=== PATIENT | male | born 1975 | race Caucasian/White ===

== ENCOUNTER 2020-02-20 12:38 | Observation (INO) | payer OTHER, SELFPAY ==
[2020-02-20] VITALS (13 sets, daily range): BP systolic 137–200; BP diastolic 73–100; PULSE 68–90; RESP 12–23; TEMP 36.2–36.5; O2SAT 95–99; BMI 43.1
--- NOTE | ~2020-02-20 | XR_ITS ---
EXAMINATION: XR chest 2V DATE: 02/20/2020 13:17 INDICATION: Midsternal chest pain TECHNIQUE: PA and lateral views of the chest were obtained. COMPARISON: Chest radiograph dated 05/28/2018 FINDINGS: The lungs remain clear with no focal airspace opacities, pulmonary edema, pleural effusion or pneumot horax. The cardiomediastinal silhouette is normal. Mild thoracic spondylosis. IMPRESSION: 1. No acute cardiopulmonary disease. Reviewed, dictated and finalized at location A.
--- NOTE | 2020-02-20 12:55 | ECG_ITS ---
Measurements Intervals [place] Rate: 88 P: 37 IN: 128 QRS: 30 QRSD: 84 T: 24 QT: 353 QTc: 429 Interpretive Statements SINUS RHYTHM BASELINE WANDER- III, AVR, AVL, AVF, V4-V6 NORMAL ECG Electronically Signed On 02-20-2020 13:46:43 CDT by David Oleary D.O.
[2020-02-20 13:08] LABS: Basophils Absolute Auto 0.1 K/mm3 (0.0-0.1); Basophils Percent Auto 0.4 % (0.2-1.2); Eosinophils Absolute Auto 0.3 K/mm3 (0-0.3); Eosinophils Percent Auto 2.2 % (0-4.4); Hematocrit 45.6 % (42.0-52.0); Hemoglobin 16.1 g/dL (14.0-18.0); Immature Granulocyte Absolute 0.04 K/mm3 (0.00-0.031); Immature Granulocyte Percent A 0.3 % (0-0.5); Lymphocytes Absolute Auto 2.68 K/mm3 (0.9-3.2); Lymphocytes Percent Auto 23.3 % (18.3-44.2); Mean Corpuscular HGB Conc 35.3 g/dl (32-36); Mean Corpuscular Hemoglobin 32.3 pg (26-34); Mean Corpuscular Volume 91.6 fl (80-100); Mean Platelet Volume 9.9 fl (7.4-10.4); Monocytes Absolute Auto 1.2 K/mm3 (0.1-0.6); Monocytes Percent Auto 10.5 % (2.6-8.5); Neutrophils Absolute Auto 7.3 K/mm3 (1.3-6.7); Neutrophils Percent Auto 63.3 % (45.5-73.1); Platelet Count Result 289 k/mm3 (150-375); Red Blood Count 4.98 M/mm3 (4.6-6.20); Red Cell Distribution Width 12.6 % (11.5-14.5); White Blood Count 11.5 K/mm3 (4.5-10.0)
[2020-02-20] MEDS: ASPIRIN 81 MG CHEWABLE TABLET 324 MG PO (13:12)
--- NOTE | 2020-02-20 13:13 | ED.CHESTPAIN ---
HPI - Chest Pain General Chief Complaint: Chest Pain <Sade Payan PA-C - Last Filed: 02/20/20 19:02> Stated Complaint: chest pain/nausea <CORNELIO Lopez Last Filed: 02/20/20 19:02> Time Seen by Provider: 02/20/20 13:04 <CORNELIO Lopez Last Filed: 02/20/20 19:02> Source: patient <CORNELIO Lopez Last Filed: 02/20/20 19:02> Mode of arrival: ambulatory <CORNELIO Lopez Last Filed: 02/20/20 19:02> Limitations: no limitations <CORNELIO Lopez Last Filed: 02/20/20 19:02> History of Present Illness HPI narrative: This is a 44 year old male that presents to the ER for chest tightness which started this morning. Reports he was getting some things ready for a libertarian for his mother's birthday. Reports he was sitting in a chair and noted some nausea. Reports he also felt lightheaded. He then stood up and started to walk around with worsening of symptoms and started to note some chest tightness. Associated with shortness of breath. Reports he still does have some chest tightness. Has history of CAD with stent placement 4 years ago. Denies fever, diaphoresis, arm pain, vomiting, abdominal pain, or weakness. <Sade Payan PA-C - Last Filed: 02/20/20 19:02> Related Data Home Medications: Home Medications Medication Instructions Recorded Confirmed atorvastatin 40 mg tablet 40 mg PO QPM 08/31/19 02/20/20 famotidine 20 mg tablet 20 mg PO QPM tablet 08/31/19 02/20/20 furosemide 20 mg tablet 20 mg PO QPM 08/31/19 02/20/20 lisinopril 40 mg tablet 40 mg PO QPM 08/31/19 02/20/20 nitroglycerin 0.4 mg sublingual 0.4 mg SUBLINGUAL Q5M PRN 08/31/19 02/20/20 tablet amlodipine 10 mg PO QPM 02/20/20 02/20/20 carvedilol 12.5 mg PO BID 02/20/20 02/20/20 zolpidem 10 mg PO HS 02/20/20 02/20/20 <Sade Payan PA-C - Last Filed: 02/20/20 19:02> Allergies/Adverse Reactions: Allergies Allergy/AdvReac Type Severity Reaction Status Date / Time morphine AdvReac Unknown Dyspnea / Verified 02/20/20 15:36 SOB <Sade Payan PA-C - Last Filed: 02/20/20 19:02> Review of Systems Review of Systems: Narrative: CONSTITUTIONAL: Denies fever CARDIOVASCULAR: Reports chest pain. Denies edema. RESPIRATORY: Reports dyspnea. GASTROINTESTINAL: Reports nausea. Denies abdominal pain, vomiting NEUROLOGIC: Denies numbness, or weakness. <Sade Payan PA-C - Last Filed: 02/20/20 19:02> All systems reviewed & are unremarkable except as noted in HPI and below <Sade Payan PA-C - Last Filed: 02/20/20 19:02> [facility] Past Medical History Medical History: Medical History (Updated 02/20/20 @ 19:02 by Sade Payan PA-C) Coronary artery disease (~06/2016) : NSTEMI on June 29, 2016 status post drug-eluting stent to proximal LAD per Dr. Alfaro. : He is followed by Dr Red Marcos affiliated with [facility] in [place]. Dyslipidemia Essential hypertension Morbid obesity Obstructive sleep apnea on CPAP Type 2 diabetes mellitus <Sade Payan PA-C - Last Filed: 02/20/20 19:02> Surgical History Surgical History: Surgical History (Updated 02/20/20 @ 15:37 by Linsey Sumner PA-C) History of coronary artery stent placement Drug-eluting stent to the LAD on 06/21/2016. <Sade Payan PA-C - Last Filed: 02/20/20 19:02> Family History Family History: Family History (Updated 02/20/20 @ 16:59 by Linsey Sumner PA-C) Grandparent Hypertension Cerebrovascular accident Family history of coronary artery disease Mother Hypertension Father Family history of coronary artery disease Acute myocardial infarction Patient's father at the age of 49 from an MA. Other Family history of cardiovascular disease <Sade Payan PA-C - Last Filed: 02/20/20 19:02> Social History Social History: Social History (Updated 02/20/20 @ 17:00 by Linsey Sumner PA-C) Social History: The elsi
[2020-02-20 13:16] LABS: INR 0.9; Prothrombin Time 12.3 Seconds (11.1-14.7)
[2020-02-20 13:17] LABS: Partial Thromboplastin Time 25.3 SECONDS (22.3-36.8)
[2020-02-20 13:20] LABS: Blood Urea Nitrogen 12 mg/dL (9-20); Calcium 8.9 mg/dL (8.4-10.2); Carbon Dioxide 28 mmol/L (22-30); Chloride 100 mmol/L (98-107); Estimated CRCL calculation 126 ml/min; Estimated Glomerular Filt Rate > 60; Glucose 132 mg/dL (75-110); Potassium 3.8 mmol/L (3.4-5.0); Sodium 135 mmol/L (137-145)
[2020-02-20] MEDS: NITROGLYCERIN SL 0.4 MG TABLET SUBLINGUAL (13:24)
--- NOTE | 2020-02-20 13:29 | PC.NURSE ---
pt not wanting to take nitro, states that he believes that it makes the pressure in his chest worse pt received nitro x1
[2020-02-20 13:33] LABS: Troponin I < 0.012 ng/mL (0.000-0.034)
[2020-02-20 13:36] LABS: Alanine Aminotransferase 24 U/L (4-50); Albumin Level 4.5 g/dL (3.5-5.1); Alkaline Phosphatase 126 U/L (38-126); Aspartate Amino Transferase 21 U/L (17-59); Lipase 59 U/L (23-300)
[2020-02-20 13:45] LABS: NT Pro B Type Natriuretic Pept 68 PG/ML (5-100)
[2020-02-20] MEDS: ONDANSETRON INJ 4 MG/2 ML VIAL IV PUSH (14:31)
--- NOTE | 2020-02-20 15:31 | ADMGEN ---
This patient, Heri Post, was admitted to IMU Room 202-. Patient/family oriented to hospital policies and general routines including ID bracelet, bed and alarms, visiting hours, pain management, procedures, bathroom and other care routines, personal items, smoking policy, room service/diet, and visiting hours. Valuables list has been completed. Information on how to activate the Rapid Response Team has been discussed. Patient/Family are encouraged to report perceived risks to care and to ask questions if they do not understand what they are told or what they should do.
[2020-02-20 16:22] LABS: Glucose Point of Care 126 (65-105)
--- NOTE | 2020-02-20 16:30 | PM.IMHP ---
H&P: HPI History of Present Illness Chief complaint: Chest pain Narrative: Heri Post is a very pleasant 44-year-old male with early onset coronary artery disease, hypertension, dyslipidemia, diabetes, and obstructive sleep apnea who presented to the emergency department earlier today for evaluation of chest pain. He had his 1st cardiac event at the age of 41 in which he was found to have a high-grade ulcerated proximal LAD lesion. A drug-eluting stent was placed at that time, and he has really had an unremarkable course since then. He had previously been on both aspirin and Brilinta however did not tolerate Brilinta well and is now just taking a baby aspirin daily. He does have nitroglycerin at home and believes that he has only used it twice since 2016. He is a patient of Dr. Red Marcos at [facility] in [place] and the patient was last seen by him in August 2019. At that time he had an echocardiogram which he believes was unremarkable. In any regard, he works over nights for the [employer] (4p - 4a) with his last shift ending early Friday morning. It is his mother's birthday today, and he went to his campsite at approximately 0100 in order to began smoking pork butts for the celebration. Simply while sitting in a chair at about 0430, he began ?feeling weird? with feelings of lightheadedness, dizziness, and anxiety. He then began to experience midsternal chest tightness along with shortness of breath, and he noted at that time that his pulse was in the low 40s, which is unusual for him. Initially he thought perhaps his symptoms were due to the fact that he had not slept for 36 hours or perhaps because he had eaten, so he and his son went to [employer] to get a breakfast sandwich. As he is a diabetic, asked him he checked his glucose at that time however he reports that he never monitors at home. He was given nitroglycerin the emergency department, and tells me that it seemed to make the tightness worse and he refused further dosing. He continues to have mild tightness without any other symptoms at this time. The symptoms are not exactly similar to when he had his NSTEMI. He does occasionally have indigestion, but states that these feelings are completely different. Furthermore, he denies any injury and has no reproducible tenderness on palpation. Review of Systems Review of Systems: Narrative: Twelve systems were reviewed with pertinent positives and negatives as per HPI. No fever, chills, or sweats. He denies recent cold or flu symptoms. No cough. He denies sick contacts. He denies vomiting. No diarrhea or constipation. He denies pleuritic pain and lower extremity edema. He states compliance with his CPAP. He admits that he does not check his glucose at home, but believes his diabetes is well controlled on metformin. He denies blurry vision, polydipsia, and polyuria. No neuropathy symptoms. Except as documented, all other systems were reviewed and are negative. [facility] Past Medical History Medical History (Updated 02/20/20 @ 16:58 by Linsey Sumner PA-C) Coronary artery disease (~06/2016) : NSTEMI on June 29, 2016 status post drug-eluting stent to proximal LAD per Dr. Alfaro. : He is followed by Dr Red Marcos affiliated with [facility] in [place]. Dyslipidemia Essential hypertension Morbid obesity Obstructive sleep apnea on CPAP Type 2 diabetes mellitus Surgical History Surgical History (Updated 02/20/20 @ 15:37 by Linsey Sumner PA-C) History of coronary artery stent placement Drug-eluting stent to the LAD on 06/21/2016. Family History Family History (Updated 02/20/20 @ 16:59 by Linsey Sumner PA-C) Grandparent Hypertension Cerebrovascular accident Family history of coronary artery disease Mother Hypertension Father Family history of coronary artery disease Acute myocardial infarction Patient's father at the age of 49 from an [place].
[2020-02-20 16:50] LABS: Troponin I < 0.012 ng/mL (0.000-0.034)
[2020-02-20 17:24] LABS: Hemoglobin A1C 7.1 % (<5.7)
[2020-02-20] MEDS: FUROSEMIDE 20 MG TABLET PO (17:45)
[2020-02-20] MEDS: ATORVASTATIN 40 MG TABLET PO (17:45)
[2020-02-20] MEDS: FAMOTIDINE 20 MG TABLET PO (17:45)
[2020-02-20] MEDS: AMLODIPINE BESYLATE 5 MG TABLET 10 MG PO (17:45)
[2020-02-20] MEDS: lisinopriL 20 MG TABLET 40 MG PO (17:45)
[2020-02-20 19:32] LABS: Troponin I < 0.012 ng/mL (0.000-0.034)
[2020-02-20 20:48] LABS: Glucose Point of Care 219 (65-105)
[2020-02-20] MEDS: carvediloL 12.5 MG TABLET PO (20:56)
[2020-02-20] MEDS: ZOLPIDEM TARTRATE 5 MG TABLET 10 MG PO (23:50)
[2020-02-21] VITALS (20 sets, daily range): BP systolic 112–148; BP diastolic 63–83; PULSE 52–79; RESP 14–20; TEMP 35.6–36.8; O2SAT 94–100
[2020-02-21 05:08] LABS: Basophils Absolute Auto 0.1 K/mm3 (0.0-0.1); Basophils Percent Auto 0.5 % (0.2-1.2); Eosinophils Absolute Auto 0.3 K/mm3 (0-0.3); Eosinophils Percent Auto 2.8 % (0-4.4); Hematocrit 42.2 % (42.0-52.0); Hemoglobin 14.4 g/dL (14.0-18.0); Immature Granulocyte Absolute 0.04 K/mm3 (0.00-0.031); Immature Granulocyte Percent A 0.4 % (0-0.5); Lymphocytes Absolute Auto 2.85 K/mm3 (0.9-3.2); Lymphocytes Percent Auto 28.8 % (18.3-44.2); Mean Corpuscular HGB Conc 34.1 g/dl (32-36); Mean Corpuscular Hemoglobin 31.2 pg (26-34); Mean Corpuscular Volume 91.3 fl (80-100); Mean Platelet Volume 9.7 fl (7.4-10.4); Monocytes Percent Auto 10.5 % (2.6-8.5); Neutrophils Absolute Auto 5.6 K/mm3 (1.3-6.7); Platelet Count Result 244 k/mm3 (150-375); Red Blood Count 4.62 M/mm3 (4.6-6.20); Red Cell Distribution Width 12.6 % (11.5-14.5); White Blood Count 9.9 K/mm3 (4.5-10.0)
[2020-02-21 05:15] LABS: Blood Urea Nitrogen 11 mg/dL (9-20); Calcium 8.6 mg/dL (8.4-10.2); Carbon Dioxide 29 mmol/L (22-30); Chloride 104 mmol/L (98-107); Estimated CRCL calculation 113 ml/min; Estimated Glomerular Filt Rate > 60; Glucose 152 mg/dL (75-110); Potassium 3.6 mmol/L (3.4-5.0); Sodium 136 mmol/L (137-145)
[2020-02-21] MEDS: ASPIRIN 81 MG ENTERIC TABLET PO (08:20)
[2020-02-21] MEDS: carvediloL 12.5 MG TABLET PO (08:20)
[2020-02-21 08:37] LABS: Glucose Point of Care 117 (65-105)
--- NOTE | 2020-02-21 09:05 | PM.CNCAR ---
Assessment and Plan Assessment and plan (1) Chest pain: Code(s): R07.9 - Chest pain, unspecified Status: Acute Assessment and Plan: 54 y/o old male with history of HHT, DM, CAD s/p PCI of LAD in 2016 who presents with chest pressure and nausea. Symptoms could be due to vasovagal reaction in the setting of sleep deprivation (bradycardia at time of symptoms suggests that) however with his cardiac history and extensive risk factors including HTN, DM, obeisty and strong family history will proceed with [facility]/Coronary angiogram. Will need to hold Metformin for 48 hours post cath I explained procedure in details to the patient. He is willing to proceed understanding risk and benefits. Continue ASA and Statin. He is no longer on second antiplatelet agents after completed a year post last PCI (2) Dyslipidemia: Code(s): E78.5 - Hyperlipidemia, unspecified Status: Acute Assessment and Plan: Continue atorvastatin (3) Essential hypertension: Code(s): I10 - Essential (primary) hypertension Status: Acute Assessment and Plan: Continue Lisinopril and Coreg (4) Type 2 diabetes mellitus: Code(s): E11.9 - Type 2 diabetes mellitus without complications Status: Acute Assessment and Plan: Hold Metformin post cath X48 hours (5) Obstructive sleep apnea on CPAP: Code(s): G47.33 - Obstructive sleep apnea (adult) (pediatric); Z99.89 - Dependence on other enabling machines and devices Status: Acute History of Present Illness History of Present Illness Consult date/time: 02/21/20 09:05 44 y/o male with strong family and personal history of early onset CAD (s/p LAD PCI in 2016), HTN, DM, obesity and JETHRO who presented with chest pressure and nausea. Patient reports doing fairly well since his last cardiac event when underwent stent placement 3-4 years ago with only occasional chest pressure. He rarely needs to take SL nitro. 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 That was associated with chest pressure. His pulse was as low as 40 which is not usual for him. He tried to sleep but could not as he did not have his sleeping bill neither had his CPAP machine. He eventually decided to seek medical attention. He has ruled out for SD so far by EKG and 2 negative troponin. He feels back to normal now. Denies dyspnea. No dizziness, lightheadedness or syncope. EKG shows normal sinus rhythm, early repolarization in lateral leads. Never smoker. He is on Metformin but states that for pre diabetes. Father and grandfather had SD in their 40s. Reason For Visit: Chest pain Review of Systems Review of Systems: All systems reviewed & are unremarkable except as noted in HPI and below Constitutional: Constitutional: Denies fatigue and Denies headache(s) Eyes: Eyes: Denies blurry vision ENT: Reports Normal hearing present and Denies headache(s) Cardiovascular: Cardiovascular: Denies chest pain, Denies diaphoresis, Denies pedal edema, Denies leg edema, Denies lightheadedness, Denies palpitations and Denies dyspnea Respiratory: Respiratory: Denies cough and Denies dyspnea Gastrointestinal: Gastrointestinal: Denies abdominal pain Musculoskeletal: Musculoskeletal: Denies back pain Neurologic: Reports Normal hearing present and Denies headache(s) Psychiatric: Psychiatric: Denies anxiety Endocrine: Endocrine: Denies fatigue and Denies palpitations [facility] Past Medical History Medical History (Updated 02/20/20 @ 19:02 by Sade Payan PA-C) Coronary artery disease (~06/2016) : NSTEMI on June 29, 2016 status post drug-eluting stent to proximal LAD per Dr. Alfaro. : He is followed by Dr Red Marcos affiliated with [facility] in [place]. 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
--- NOTE | 2020-02-21 11:15 | PM.IMPN ---
Progress Note: A&P Assessment and Plan (1) Chest pain: Code(s): R07.9 - Chest pain, unspecified Status: Acute Assessment and Plan: CP appears to be more intermittent occurring when he does not sleep much but the nausea is new. He did have bradycardia as well as HTN which could have been a contributing factor. Troponin negative x 3. EKG showing no acute changes. We continued aspirin, statin beta-chong. Heart rate has remained well controlled. Cardiology consult. Heart catheterization which showed mild coronary artery disease and normal LV systolic function. Plan for continued aggressive medical management and risk factor modification. (2) Coronary artery disease: Onset Date: ~06/2016 Code(s): I25.10 - Atherosclerotic heart disease of [place] coronary artery without angina pectoris Status: Acute Assessment and Plan: Patient with known Coronary disease status post drug-eluting stent to the proximal LAD in June 2016. Continue aspirin, statin, and beta-chong. (3) Essential hypertension: Code(s): I10 - Essential (primary) hypertension Status: Acute Assessment and Plan: Blood pressure was 200/100 on arrival to the emergency department, but did improve after receiving nitroglycerin x1. We continued with his antihypertensives and blood pressure remained well controlled. Blood pressure may have been elevated because of his lack of sleep and being off his CPAP. (4) Dyslipidemia: Code(s): E78.5 - Hyperlipidemia, unspecified Status: Acute Assessment and Plan: LFTs within normal limits. Continue atorvastatin. (5) Type 2 diabetes mellitus: Code(s): E11.9 - Type 2 diabetes mellitus without complications Status: Acute Assessment and Plan: A1c 7.1. Glucose reviewed on 02/21/2020. Glucose well controlled. Metformin on hold. Continue Accu-Cheks covered with sliding scale protocol. Hypoglycemia protocol available as needed. (6) Obstructive sleep apnea on CPAP: Code(s): G47.33 - Obstructive sleep apnea (adult) (pediatric); Z99.89 - Dependence on other enabling machines and devices Status: Acute Assessment and Plan: Patient continues on Hospital CPAP. Continue to monitor. Subjective Date/time seen: 02/21/20 11:15 Interval history: 44yo male with history CAD, diabetes and hypertension presents to the emergency room complaints of chest pain and bradycardia. History reviewed with patient. He states he normally has chest pressure if he has not slept which was the case prior to admission. The difference however is that he developed nausea with the symptoms which is unusual. He was having diarrhea but this is also not uncommon for the patient. He was using a treadmill up to about 2 months ago. He denies any chest pain with that type of exertion. He feels well this morning. Slept well. Currently NPO. Exam Narrative: Exam Narrative: Gen - NARD sitting up in bed Chest - CTA bilaterally, nml RR CV - RRR S1/S2; telemetry showing no significant dysrhythmias. Heart rate dropped to 49 at one point Abd - Soft, NT/ND, Positive BS Ext - No pedal edema Neuro - Alert and oriented. Nonfocal exam. Psych - Nml mood and affect Skin - Warm and dry Objective Data Vital Signs Vital Signs: Vital Signs - 24 hr 02/20/20 12:42 02/20/20 12:55 02/20/20 13:26 Temperature 97.5 F L Pulse Rate 83 86 90 Respiratory Rate 23 H 18 Blood Pressure 200/100 H 170/88 H Pulse Oximetry 99 97 02/20/20 14:32 02/20/20 15:26 02/20/20 15:55 Temperature 97.2 F L Pulse Rate 72 68 70 Respiratory Rate 17 12 16 Blood Pressure 137/73 148/74 H Pulse Oximetry 95 95 97 02/20/20 16:00 02/20/20 16:01 02/20/20 18:05 Temperature 97.2 F L Pulse Rate 70 70 72 Respiratory Rate 16 Blood Pressure 148/74 H Pulse Oximetry 97 02/20/20 20:00 02/20/20 20:51 02/20/20 20:56 Temperature 97.7 F Puls
[2020-02-21 12:19] LABS: Glucose Point of Care 140 (65-105)
--- NOTE | 2020-02-21 14:40 | WPDMODSED ---
Moderate Sedation Note-Pt Data Patient Data Allergies Allergy/AdvReac Type Severity Reaction Status Date / Time morphine AdvReac Unknown Dyspnea / Verified 02/20/20 15:36 SOB Home Medications Medication Instructions Recorded Confirmed Type atorvastatin 40 mg tablet 40 mg PO QPM 08/31/19 02/20/20 History famotidine 20 mg tablet 20 mg PO QPM tablet 08/31/19 02/20/20 History furosemide 20 mg tablet 20 mg PO QPM 08/31/19 02/20/20 History lisinopril 40 mg tablet 40 mg PO QPM 08/31/19 02/20/20 History nitroglycerin 0.4 mg sublingual 0.4 mg SUBLINGUAL Q5M PRN 08/31/19 02/20/20 History tablet metformin 500 mg tablet,extended 500 mg PO BID #60 tablet 12/30/19 02/20/20 Rx release 24 hr amlodipine 10 mg PO QPM 02/20/20 02/20/20 History carvedilol 12.5 mg PO BID 02/20/20 02/20/20 History zolpidem 10 mg PO HS 02/20/20 02/20/20 History Current Medications: Active Medications Amlodipine Besylate (Norvasc) 10 mg PO QPM [facility] Last Admin: 02/20/20 17:45 Dose: 10 mg Documented by: Aspirin (Aspirin Ec) 81 mg PO QAM [facility] Last Admin: 02/21/20 08:20 Dose: 81 mg Documented by: Atorvastatin Calcium (Lipitor) 40 mg PO QPM [facility] Last Admin: 02/20/20 17:45 Dose: 40 mg Documented by: Carvedilol (Coreg) 12.5 mg PO Q12HR [facility] Last Admin: 02/21/20 08:20 Dose: 12.5 mg Documented by: Dextrose (Dextrose 50% Syringe) 12.5 gm IV PUSH PRN PRN; Protocol PRN Reason: Hypoglycemia Famotidine (Pepcid) 20 mg PO QPM [facility] Last Admin: 02/20/20 17:45 Dose: 20 mg Documented by: Furosemide (Lasix Tablet) 20 mg PO QPM [facility] Last Admin: 02/20/20 17:45 Dose: 20 mg Documented by: Glucagon (Glucagon For Inj) 1 mg IM PRN PRN; Protocol PRN Reason: Hypoglycemia Glucose (Glutose 15) 15 gm PO PRN PRN; Protocol PRN Reason: Hypoglycemia Dextrose (Dextrose 5% 1,000 Ml) 1,000 mls @ 100 mls/hr IVPB PRN PRN; Protocol PRN Reason: Hypoglycemia Insulin Aspart (Novolog) 2 - 5 units SUB-Q TIDWM [facility]; Protocol Last Admin: 02/21/20 12:10 Dose: Not Given Documented by: Lisinopril (Prinivil) 40 mg PO QPM [facility] Last Admin: 02/20/20 17:45 Dose: 40 mg Documented by: Zolpidem Tartrate (Ambien) 10 mg PO HS [facility] Last Admin: 02/20/20 23:50 Dose: 10 mg Documented by: Sedation/Anesthesia: No previous sedation/anesthesia problems (including family history). [facility] Past Medical History Medical History (Updated 02/20/20 @ 19:02 by Sade Payan PA-C) Coronary artery disease (~06/2016) : NSTEMI on June 29, 2016 status post drug-eluting stent to proximal LAD per Dr. Alfaro. : He is followed by Dr Red Marcos affiliated with [facility] in [place]. Dyslipidemia Essential hypertension Morbid obesity Obstructive sleep apnea on CPAP Type 2 diabetes mellitus Surgical History Surgical History (Updated 02/20/20 @ 15:37 by Linsey Sumner PA-C) History of coronary artery stent placement Drug-eluting stent to the LAD on 06/21/2016. Family History Family History (Updated 02/20/20 @ 16:59 by Linsey Sumner PA-C) Grandparent Hypertension Cerebrovascular accident Family history of coronary artery disease Mother Hypertension Father Family history of coronary artery disease Acute myocardial infarction Patient's father at the age of 49 from an PR. Other Family history of cardiovascular disease Social History Social History (Updated 02/20/20 @ 17:00 by Linsey Sumner PA-C) Social History: The patient lives in [place], [place] with his wm and 3 sons. 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 He is a lifelong nonsmoker. He drinks about a 30 pack of beer a week. He denies drug use. He designates his fiancee, Rodrick Robison, as his surrogate decision maker and he wishes to be a full code. Spiritual care concerns: No Mod Sed Physical Exam Physical Exam Pre Procedural Exam: Normal: Appearance, Eyes, Ears, Nose, Neck, Throat, Airway, Lungs, Hea
--- NOTE | 2020-02-21 15:11 | P.PCNCC_ITS ---
Cardiac Cath Procedure Note Date of procedure:: 02/21/20 Performing physician:: Edilson Amador MD Procedure: 1. Left heart catheterization, selective coronary angiogram. 2. Left ventricular angiogram. 3. Conscious sedation. 4. Femoral artery angiogram, on the right side. 5. Angio-Seal device for arterial hemostasis [employer] Sales Representative: Dr. Edilson Amador Complications: None. Sedation: Conscious sedation, local anesthesia, using 1 mg of Versed said, 25 mcg of fentanyl, and using 1% lidocaine for local anesthesia. Technique: After informed consent was obtained from patient, was brought to the laboratory phlebotomist, put in the laboratory phlebotomist table, prepped and draped in usual sterile fashion. Five Chilean sheath was inserted into the right common femoral artery, through the sheath 5 [place]an JL4 catheter inserted, advanced to the left coronary artery, left coronary artery angiogram was obtained. The catheter was exchanged over guidewire into a 5 [place]an JR4 catheter, advanced to the right coronary artery, right coronary artery angiogram was obtained. The catheter then was exchanged over guidewire into this 5 [place]an pigtail catheter, advanced to left ventricle, left ventricular angiogram was obtained. The catheter then was pulled, the sheath was pulled applying Angio-Seal device for arterial hemostasis. Patient tolerated the procedure no complication, taken from the laboratory phlebotomist to his room in stable condition stable vital signs. Hemodynamics: aortic pressure 124/60 . LV pressure 124/04 with LVEDP of 24 mmHg Angiographic findings: Left main: Medium size artery no significant disease or stenosis. Lad medium size artery showed patent stent in the proximal portion Left circumflex artery, medium size artery, no significant disease or stenosis. RCA: Dominant vessel, showed mid RCA significant irregularity with a 40-50% disease. LV: Normal size left ventricle with normal left ventricular systolic function. Summary: Mild coronary artery disease, normal left ventricular systolic function. Recommendation: Maximum medical treatment. Risk factor modification.
[2020-02-21 16:51] LABS: Glucose Point of Care 123 (65-105)
--- NOTE | 2020-02-21 16:52 | PM.DS ---
DS: Diagnosis Admitting Diagnosis Admitting Diagnosis: Chest pain, unspecified Discharge Diagnosis (1) Chest pain: Code(s): R07.9 - Chest pain, unspecified Status: Acute Assessment and Plan: CP appears to be more intermittent occurring when he does not sleep much but the nausea is new. He did have bradycardia as well as HTN which could have been a contributing factor. Troponin negative x 3. EKG showing no acute changes. We continued aspirin, statin beta-chong. Heart rate has remained well controlled. Cardiology consult. Patient underwent left heart catheterization which showed mild coronary artery disease and normal LV systolic function. Plan for continued aggressive medical management and risk factor modification. (2) Coronary artery disease: Onset Date: ~06/2016 Code(s): I25.10 - Atherosclerotic heart disease of barrow coronary artery without angina pectoris Status: Acute Assessment and Plan: Patient with known Coronary disease status post drug-eluting stent to the proximal LAD in June 2016. We continued aspirin, statin, and beta-chong. (3) Essential hypertension: Code(s): I10 - Essential (primary) hypertension Status: Acute Assessment and Plan: Blood pressure was 200/100 on arrival to the emergency department, but did improve after receiving nitroglycerin x1. We continued with his antihypertensives and blood pressure remained well controlled. Blood pressure may have been elevated because of his lack of sleep and being off his CPAP. (4) Dyslipidemia: Code(s): E78.5 - Hyperlipidemia, unspecified Status: Acute Assessment and Plan: LFTs within normal limits. We continued atorvastatin. (5) Type 2 diabetes mellitus: Code(s): E11.9 - Type 2 diabetes mellitus without complications Status: Acute Assessment and Plan: A1c 7.1. Glucose reviewed on 02/21/2020. Glucose well controlled. Metformin on hold. Continue Accu-Cheks covered with sliding scale protocol. Hypoglycemia protocol available as needed. (6) Obstructive sleep apnea on CPAP: Code(s): G47.33 - Obstructive sleep apnea (adult) (pediatric); Z99.89 - Dependence on other enabling machines and devices Status: Acute Assessment and Plan: Patient continues on Hospital CPAP. DS: Summary Hospital Course Reason for hospitalization: 44yo male with known CAD here for CP. Please see H&P for details Hospital Course: As above Time Spent with Patient Time attestation: Total time spent providing and/or coordinating discharge services: 32 minutes Time spent: Greater than 30 minutes Specific discharge activities: Patient Education about healthy lifestyle choices. Exam Narrative: Exam Narrative: Gen - NARD sitting up in bed Chest - CTA bilaterally, nml RR CV - RRR S1/S2; telemetry showing no significant dysrhythmias. Heart rate dropped to 49 at one point Abd - Soft, NT/ND, Positive BS Ext - No pedal edema Neuro - Alert and oriented. Nonfocal exam. Psych - Nml mood and affect Skin - Warm and dry DS: Data Data Completed and Pending Labs on day of discharge: Labs from last 24 hours 02/21/20 02/21/20 02/21/20 16:44 11:52 07:51 WBC RBC Hgb Hct MCV MCH MCHC RDW Plt Count MPV Immature Gran % (Auto) Neut % (Auto) Lymph % (Auto) Gillespie % (Auto) Eos % (Auto) Baso % (Auto) Lymph # (Auto) Gillespie # (Auto) Eos # (Auto) Baso # (Auto) Abs Immat Gran (auto) Absolute Neuts (auto) Absolute Nucleated RBC Nucleated RBC % Sodium Potassium Chloride Carbon Dioxide BUN Creatinine Estim Creat Clear Calc Estimated GFR Glucose POC Capillary Glucose 123 H 140 H 117 H Hemoglobin A1c Calcium Troponin I 02/21/20 02/21/20 02/20/20 04:29 04:29 19:45 WBC 9.9 RBC 4.62 Hgb 14.4 Hct 42.2 MCV
[2020-02-21] MEDS: lisinopriL 20 MG TABLET 40 MG PO (17:17)
[2020-02-21] MEDS: AMLODIPINE BESYLATE 5 MG TABLET 10 MG PO (17:17)
[2020-02-21] MEDS: FUROSEMIDE 20 MG TABLET PO (17:17)
[2020-02-21] MEDS: FAMOTIDINE 20 MG TABLET PO (17:17)
[2020-02-21] MEDS: ATORVASTATIN 40 MG TABLET PO (17:17)
[2020-02-21 17:53] LABS: Cholesterol 128 mg/dL (0-200); HDL Direct 24 mg/dL; Triglycerides 148 mg/dL (<150)
[2020-02-21 18:08] LABS: LDL Cholesterol Direct 78 mg/dL
== END 2020-02-21 19:09 | disposition home or self-care (01) ==
LOC: ANHED 14:58 → ANHIMU 15:13
PROVIDERS: Physician Assistant; Specialist; Admitting Provider Family Medicine; Emergency Provider Emergency Medicine; PCP Family Medicine; Visit Provider Internal Medicine
PROC: 4A023N7 Measurement of Cardiac Sampling and Pressure, Left Heart, Percutaneous Approach (ICD-10-PCS; CPT 93452; principal; 2020-02-21 14:30)
DX: R07.9 Chest pain, unspecified (principal); I25.10 Atherosclerotic heart disease of native coronary artery without angina pectoris; I10 Essential (primary) hypertension; E78.5 Hyperlipidemia, unspecified; E11.9 Type 2 diabetes mellitus without complications; G47.33 Obstructive sleep apnea (adult) (pediatric); R06.02 Shortness of breath; I25.2 Old myocardial infarction; Z95.5 Presence of coronary angioplasty implant and graft
CPT/HCPCS: 36415; 71046; 80048; 80061; 80076; 83036; 83690; 83880; 84484; 85025; 85610; 85730; 93005; 93458; 96374; 99285; A9270; C1760; C1887; C1894; G0269; G0378; J1644; J2250; J2405; J3010; J7040

== ENCOUNTER 2021-11-15 21:46 | Emergency (ER) | payer OTHER, SELFPAY ==
[2021-11-15] VITALS (13 sets, daily range): BP systolic 117–168; BP diastolic 84–89; PULSE 70–92; RESP 11–24; TEMP 35.9; O2SAT 97–100
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
[2021-11-15 22:34] LABS: Alveolar/Arterial O2 Gradient 416.2 mmHg; Base Excess ABG -0.6 mEq/l (+/-2.0); Carboxyhemoglobin 1.3 % THb (0-2.0); Fractional Inspired Oxygen 100 %; HCO3 ABG 23.5 mEq/l (22.0-26.0); Methemoglobin ABG 0.4 %THb (0-1.5); Oxygen Content ABG 21.8 %vol (16.0-22.0); Oxygen Saturation ABG 99.6 % (95.0-100.0); Oxyhemoglobin 97.5 % THb (90.0-100.0); PCO2 ABG 37.1 mmHg (35.0-45.0); PO2 ABG 259.7 mmHg (80.0-100.0); Reduced Hemoglobin 0.8 %THb (0-5.0); Total Hemoglobin 15.5 g/dL (12.0-18.0); pH ABG 7.419 (7.350-7.450)
[2021-11-15 22:35] LABS: Device NON-REBREATHER MASK; Modified Allen's Test Pass; Site Drawn RIGHT RADIAL
[2021-11-15] MEDS: ALBUTEROL SULFATE NEB 2.5 MG/0.5 ML INH 5 MG INHALATION (22:44)
[2021-11-15 22:52] LABS: Basophils Absolute Auto 0.1 K/mm3 (0.0-0.1); Basophils Percent Auto 0.5 % (0.2-1.2); Eosinophils Absolute Auto 0.2 K/mm3 (0-0.3); Eosinophils Percent Auto 1.8 % (0-4.4); Hematocrit 45.1 % (42.0-52.0); Hemoglobin 15.5 g/dL (14.0-18.0); Immature Granulocyte Absolute 0.03 K/mm3 (0.00-0.031); Immature Granulocyte Percent A 0.3 % (0-0.5); Lymphocytes Absolute Auto 2.65 K/mm3 (0.9-3.2); Lymphocytes Percent Auto 22.8 % (18.3-44.2); Mean Corpuscular HGB Conc 34.4 g/dl (32-36); Mean Platelet Volume 9.4 fl (7.4-10.4); Monocytes Absolute Auto 1.1 K/mm3 (0.1-0.6); Monocytes Percent Auto 9.3 % (2.6-8.5); Neutrophils Absolute Auto 7.6 K/mm3 (1.3-6.7); Neutrophils Percent Auto 65.3 % (45.5-73.1); Platelet Count Result 263 k/mm3 (150-375); Red Blood Count 4.85 M/mm3 (4.6-6.20); Red Cell Distribution Width 12.1 % (11.5-14.5); White Blood Count 11.6 K/mm3 (4.5-10.0)
[2021-11-15 23:43] LABS: Alanine Aminotransferase 25 U/L (4-50); Albumin Level 4.1 g/dL (3.5-5.1); Alkaline Phosphatase 115 U/L (38-126); Anion Gap 12 mmol/L (8-16); Aspartate Amino Transferase 22 U/L (17-59); Blood Urea Nitrogen 11 mg/dL (9-20); Calcium 8.8 mg/dL (8.4-10.2); Carbon Dioxide 25 mmol/L (22-30); Chloride 100 mmol/L (98-107); Estimated CRCL calculation 120 ml/min; Estimated Glomerular Filt Rate > 60; Glucose 124 mg/dL (65-110); Potassium 3.8 mmol/L (3.4-5.0); Sodium 137 mmol/L (137-145)
[2021-11-16 00:09] VITALS: PULSE 67; RESP 18; O2SAT 100
[2021-11-16 00:16] VITALS: BP 167/95; PULSE 79; RESP 17; O2SAT 98
[2021-11-16 00:17] VITALS: PULSE 79; RESP 20; O2SAT 100
== END 2021-11-16 00:26 | disposition home or self-care (01) ==
PROVIDERS: Emergency Provider Emergency Medicine; PCP Family Medicine
DX: T59.811A Toxic effect of smoke, accidental (unintentional), initial encounter (principal); I25.10 Atherosclerotic heart disease of native coronary artery without angina pectoris; E78.5 Hyperlipidemia, unspecified; I10 Essential (primary) hypertension; G47.30 Sleep apnea, unspecified; E11.9 Type 2 diabetes mellitus without complications; X00.0XXA Exposure to flames in uncontrolled fire in building or structure, initial encounter
CPT/HCPCS: 36415; 36600; 71045; 80053; 82375; 82805; 83050; 85025; 94640; 99283

== ENCOUNTER → 2021-12-13 15:35 | Outpatient (CLI) | payer OTHER, SELFPAY ==
--- NOTE | ~2021-12-13 | XR_ITS ---
EXAMINATION: XR chest 2V EXAM DATE: 12/13/2021 16:20 INDICATION: R05.9 - Cough, unspecified TECHNIQUE: Frontal and lateral projections of the chest obtained and reviewed. Comparison is made to prior examination from 11/15/2021. FINDINGS: The lungs are clear. There are no pleural effusions. The cardiomediastinal silhouette is within normal limits. There is no pneumothorax suspected. The bones and soft tissues are unremarkab le. IMPRESSION: Normal chest x-ray exam. Reviewed, dictated and finalized at location A. ING MACHINE FEEDER IMPRESSION: Normal chest x-ray exam.
== END ==
PROVIDERS: Visit Provider Nurse Practitioner Family
DX: R05.9 Cough, unspecified (principal)
CPT/HCPCS: 71046

== ENCOUNTER 2023-08-11 11:49 | Outpatient (CLI) | payer BC, SELFPAY ==
--- NOTE | ~2023-08-11 | MMUS_ITS ---
EXAMINATION: MM diagnostic jayne RT w robert, US breast RT limited HISTORY: Right subareolar pain TECHNIQUE: Additional 3-D tomosynthesis images of the right breast were performed and synthetic 2-D i mages were generated. CAD analysis was submitted and interpreted. High resolution Limited right breas t ultrasound was performed. COMPARISON: None BREAST PARENCHYMAL COMPOSITION: Breast composed of scattered areas of fibroglandular density FINDINGS: MAMMOGRAPHIC FINDINGS: There is benign bilateral gynecomastia. No suspicious masses, calcifications or architectural distort ion in the right breast to suggest malignancy. ULTRASOUND: Limited right breast ultrasound: No suspicious solid or cystic masses in the right breast to suggest malignancy. IMPRESSION: 1. No evidence for malignancy in the right breast. 2. Routine yearly screening mammogram and regular clinical breast examination are recommended. BI-RADS Category 1: Negative Reviewed, dictated and finalized at location A. MAKER IMPRESSION: 1. No evidence for malignancy in the right breast. 2. Routine yearly screening mammogram and regular clinical breast examination a re recommended. BI-RADS Category 1: Negative
== END 2023-08-11 11:50 | disposition home or self-care (01) ==
LOC: ANHIMG 11:52
PROVIDERS: PCP Family Medicine; Visit Provider Physician Assistant Medical
DX: N63.10 Unspecified lump in the right breast, unspecified quadrant (principal); N64.4 Mastodynia
CPT/HCPCS: 76642; 77061; 77065; G0279